=== PATIENT | female | born 1965 | race Caucasian/White ===

== ENCOUNTER 2020-07-24 09:05 | Outpatient (CLI) | payer OTHER | END 2020-07-24 09:24 | disposition home or self-care (01) | LOC: SONOGRAMA 09:05 | PROVIDERS: ATTEND Obstetrics & Gynecology Gynecology | DX: N84.0 Polyp of corpus uteri (principal); D25.1 Intramural leiomyoma of uterus; N60.11 Diffuse cystic mastopathy of right breast; N60.12 Diffuse cystic mastopathy of left breast; R68.82 Decreased libido; E55.9 Vitamin D deficiency, unspecified; N95.0 Postmenopausal bleeding; R31.21 Asymptomatic microscopic hematuria; R10.11 Right upper quadrant pain; N76.2 Acute vulvitis; R92.0 Mammographic microcalcification found on diagnostic imaging of breast ==

== ENCOUNTER 2023-12-28 15:18 | Emergency (ER) | payer OTHER ==
[~2023-12-28] VITALS: Ht 157.5 cm; Wt 61.2 kg
[2023-12-28 15:36] VITALS: BP 113/80; O2SAT 99
[2023-12-28] MEDS ORDERED: ANALPRAM HC 2.530 GM RECTAL (16:57)
[2023-12-28] MEDS ORDERED: KETO10TA2 PO (16:57)
[2023-12-28] MEDS ORDERED: KETOROLAC TROMETHAMINE 60 MG VIAL IM ONE (17:00)
== END 2023-12-28 17:08 | disposition home or self-care (01) ==
LOC: ER 15:20
DX: K64.8 Other hemorrhoids (principal); E11.9 Type 2 diabetes mellitus without complications; E03.9 Hypothyroidism, unspecified; Z88.0 Allergy status to penicillin; Z91.013 Allergy to seafood